=== PATIENT | male | born 1965 | race Caucasian/White ===

== ENCOUNTER 2016-05-31 10:08 | Emergency (ER) | payer OTHER ==
[2016-05-31 10:18] VITALS: BP 136/75
--- NOTE | 2016-05-31 10:42 | ER Document Report ---
ED Wound - General Chief Complaint: Wound Recheck Stated Complaint: WOUND RECHECK Time seen by provider: 10:42 Mode of Arrival: Ambulatory Information source: Patient TRAVEL OUTSIDE OF THE [place] IN LAST 30 DAYS: No - HPI Patient complains to provider of: Other - wound recheck Occurred: Other - 05/29 Onset/Duration: Better Quality of pain: Stabbing Severity: Mild Pain Level: 1 Capillary refill: > 3 seconds Sensations intact: Yes Distal pulses present: Yes Associated Symptoms: Other - Related Data Allergies/Adverse Reactions: No Known Allergies Allergy (Verified 05/31/16 10:21) Past Medical History - General Information source: Patient - Social History Smoking Status: Current Every Day Smoker Cigarette use (# per day): Yes - ppd Chew tobacco use (# tins/day): No Smoking Education Provided: Yes - less 2min Frequency of alcohol use: None Drug Abuse: None Lives with: Family Family History: Arthritis, CAD, CVA, DM, Hyperlipidemia, Hypertension, Malignancy, Thyroid Disfunction - Past Medical History Cardiac Medical History: Reports: Hx Atrial Fibrillation, Hx Coronary Artery Disease, Hx Heart Attack, Hx Hypertension Pulmonary Medical History: Reports: Hx COPD EENT Medical History: Reports: None Neurological Medical History: Reports: Hx Migraine Endocrine Medical History: Reports: Hx Hypothyroidism Renal/ Medical History: Reports: Hx Benign Prostatic Hyperplasia Malignancy Medical History: Reports Hx Colorectal Cancer GI Medical History: Reports: Hx Diverticulitis, Hx Gastroesophageal Reflux Disease Musculoskeltal Medical History: Reports Hx Arthritis Skin Medical History: Reports Hx Cellulitis Psychiatric Medical History: Reports: Hx Anxiety Traumatic Medical History: Reports: Hx Fractures Infectious Medical History: Reports: None Past Surgical History: Reports: Hx Bowel Surgery, Hx Cardiac Catheterization, Hx Coronary Stent - 7. Denies: Hx Colostomy - Immunizations Hx Diphtheria, Pertussis, Tetanus Vaccination: Yes Review of Systems - Review of Systems Constitutional: No symptoms reported EENT: No symptoms reported Cardiovascular: No symptoms reported Respiratory: No symptoms reported Gastrointestinal: No symptoms reported Genitourinary: No symptoms reported Male Genitourinary: No symptoms reported Musculoskeletal: No symptoms reported Skin: Other - open draining wound to left thigh I&D on 05/29/16 Hematologic/Lymphatic: No symptoms reported Neurological/Psychological: No symptoms reported -: Yes All other systems reviewed and negative Physical Exam - Vital signs Vitals: Temp Pulse Resp BP Pulse Ox 98.5 F 61 18 136/75 H 98 05/31/16 10:17 05/31/16 10:17 05/31/16 10:17 05/31/16 10:17 05/31/16 10:17 Interpretation: Normal - General General appearance: Appears well, Alert - HEENT Head: Normocephalic, Atraumatic Eyes: Normal Pupils: PERRL - Respiratory Respiratory status: No respiratory distress Chest status: Nontender Breath sounds: Normal Chest palpation: Normal - Cardiovascular Rhythm: Regular Heart sounds: Normal auscultation Murmur: No - Abdominal Inspection: Normal Distension: No distension Bowel sounds: Normal Tenderness: Nontender Organomegaly: No organomegaly - Back Back: Normal, Nontender - Extremities General upper extremity: Normal inspection, Nontender, Normal color, Normal ROM , Normal temperature General lower extremity: Normal inspection, Nontender, Normal color, Normal ROM , Normal temperature, Normal weight bearing. No: Ankit's sign - Neurological Neuro grossly intact: Yes Cognition: Normal Orientation: AAOx4 Dariusz Coma Scale Eye Opening: Spontaneous [place] Coma Scale Verbal: Oriented Dariusz Coma Scale Motor: Obeys Commands [place] Coma Scale Total: 15 Speech: Normal Motor strength normal: LUE, RUE, LLE, RLE Sensory: Normal - Psychological Associated symptoms: Normal affect, Normal mood - Skin Skin Temperature: Warm Skin Moisture: Dry Skin Color: Normal Location of irregularity: Extremities - left leg open area due to I&D if abscess Course - Vital Signs Vital signs: Temp Pulse Resp BP Pulse Ox 98.5 F 61 18 136/75 H 98 05/31/16 10:17 05/31/16 10:17 05/31/16 10:17 05/31/16 10:17 05/31/16 10:17 Discharge - Discharge Clinical Impression: Abscess re-check Condition: Stable Disposition: HOME, SELF-CARE Additional Instructions: ABSCESS: You have an abscess (boil). This a pus-forming infection, usually due to staph. Some boils may be left to drain on their own, but most require lancing. From the time the tender lump first appears, it may be three or four days before the abscess is ready to amina. Local heat and rest help at this stage of treatment. An antibiotic may prevent spread of the infection. Once the abscess is opened, packing may be placed into it. This is done so pus is not sealed inside by premature closure of the cavity. The packing will be removed at your follow-up visit or you may be advised to remove it yourself at home. Sometimes this packing must be replaced a few times during healing. The wound will heal with surprisingly little scar. Depending on the size and location of an abscess, healing can take one to four weeks. You may shower and wash the area around the incision site two or three times a day. Antibiotics may be prescribed, but are usually not necessary after an abscess has been drained. If you develop fever, chills, worsening pain, or increasing swelling in the area, call the doctor or return immediately. Soap Cleansing Gently wash the wound daily using a mild soap (like Ivory, Phisoderm, Neutrogena). Use warm water, rubbing gently until all debris, ooze, and crusting have been washed from the wound. Allow to dry briefly (about 10 minutes) after cleaning. Repeat this cleansing at least three times a day for the first two days and then once or twice a day. CEPHALEXIN: The antibiotic you've been prescribed is a member of the cephalosporin class. This type of antibiotic covers a wide variety of infections, including those of the skin, lungs, and urinary tract. It's useful for staph infections. This antibiotic is slightly similar to the penicillin family. In rare cases , a person who is allergic to penicillin will also be allergic to this medication. If you have had a severe allergic reaction to penicillin, and have not taken this antibiotic since that time, notify your doctor. Antibiotics which cover many germs ("broad spectrum" antibiotics) are more likely to cause diarrhea or "yeast" infections. Women prone to vaginal yeast problems may suffer an attack after taking this antibiotic. In infants, oral thrush (white spots "stuck" on the cheek) or yeast diaper rash may result. See your doctor if these problems occur. Call at once if you develop itching, hives , shortness of breath, or lightheadedness. TRIMETHOPRIM-SULFA: You have been given a prescription for trimethoprim-sulfa (TMS, Septra, Bactrim). This is a combination antibiotic of the sulfa class, often used for urinary tract infections, middle ear infections, bronchitis, shigella intestinal infection, and Pneumocystis pneumonia. TMS is usually well-tolerated. Occasional side effects include nausea and decreased appetite. Septra is not recommended for infants less than two months of age. Do not take this medication if you have experienced severe side effects or allergy to sulfa medicine. You should stop this medicine at once and contact your physician if you develop any rash, joint pain, shortness of breath, bruising, or jaundice ( yellow color in the skin), or if you develop any other new or unusual symptoms. FOLLOW-UP CARE: Most simple abscesses will not require a follow up visit. If you had packing placed in the abscess, remove it as instructed by the physician. If you have been referred to a physician for follow-up care, call the physicians office for an appointment as you were instructed or within the next two days. If you experience worsening or a significant change in your symptoms, return to the Emergency Department at any time for re-evaluation. Prescriptions: Oxycodone HCl/Acetaminophen [Percocet 5-325 mg Tablet] 1 tab PO Q6HP PRN #7 tablet PRN Reason: Cephalexin Monohydrate [Keflex 500 mg Capsule] 500 mg PO QID #28 capsule Forms: Elevated Blood Pressure, Smoking Cessation Education [facility] - Follow up as needed
[2016-05-31] MEDS ORDERED: CEPHALEXIN 500 MG CAPSULE PO ONE (10:43)
[2016-05-31] MEDS ORDERED: MUPIROCIN 2% OINTMENT 22 GM TP ONE (10:44)
== END 2016-05-31 10:58 | disposition home or self-care (01) ==
LOC: ER 10:08
DX: L02.416 Cutaneous abscess of left lower limb (principal); F17.210 Nicotine dependence, cigarettes, uncomplicated; I48.91 Unspecified atrial fibrillation; I25.10 Atherosclerotic heart disease of native coronary artery without angina pectoris; I25.2 Old myocardial infarction; I10 Essential (primary) hypertension; J44.9 Chronic obstructive pulmonary disease, unspecified; E03.9 Hypothyroidism, unspecified; Z85.038 Personal history of other malignant neoplasm of large intestine
CPT/HCPCS: 99282; J3490

== ENCOUNTER 2016-06-08 08:34 | Emergency (ER) | payer OTHER ==
[2016-06-08 09:21] VITALS: BP 126/78
--- NOTE | 2016-06-08 09:55 | ER Document Report ---
ED Wound - General Chief Complaint: Wound Recheck Stated Complaint: LEG PAIN Mode of Arrival: Ambulatory Information source: Patient Notes: 51-year-old male presents to the emergency department for recheck of wound to left medial thigh after having an I&D done approximately 10 days ago. Patient reports had I&D done to abscess on left medial thigh 10 days ago and is ED, states initially was prescribed Bactrim and subsequently changed to cephalexin 2 days later after culture results came back positive for MRSA. Patient reports has a history of delayed wound healing and wanted to have wound recheck to make sure it was healing appropriately. Denies fever, increased pain, redness, swelling, drainage, or warmth. TRAVEL OUTSIDE OF THE [place] IN LAST 30 DAYS: No - HPI Quality of pain: No pain Severity: Mild Skin Color: Normal, [place] Capillary refill: < 3 seconds Sensations intact: Yes Distal pulses present: Yes - Related Data Allergies/Adverse Reactions: No Known Allergies Allergy (Verified 06/08/16 08:35) Past Medical History - General Information source: Patient - Social History Smoking Status: Current Every Day Smoker Chew tobacco use (# tins/day): Yes Frequency of alcohol use: None Drug Abuse: None Lives with: Family Family History: Arthritis, CAD, CVA, DM, Hyperlipidemia, Hypertension, Malignancy, Thyroid Disfunction Patient has suicidal ideation: No Patient has homicidal ideation: No - Past Medical History Cardiac Medical History: Reports: Hx Atrial Fibrillation, Hx Coronary Artery Disease, Hx Heart Attack, Hx Hypertension Pulmonary Medical History: Reports: Hx COPD Denies: Hx Asthma, Hx Bronchitis, Hx Pneumonia Neurological Medical History: Reports: Hx Migraine. Denies: Hx Cerebrovascular Accident, Hx Seizures Endocrine Medical History: Reports: Hx Hypothyroidism Renal/ Medical History: Reports: Hx Benign Prostatic Hyperplasia Malignancy Medical History: Reports Hx Colorectal Cancer GI Medical History: Reports: Hx Diverticulitis, Hx Gastroesophageal Reflux Disease Musculoskeltal Medical History: Reports Hx Arthritis Skin Medical History: Reports Hx Cellulitis Psychiatric Medical History: Reports: Hx Anxiety Traumatic Medical History: Reports: Hx Fractures Past Surgical History: Reports: Hx Bowel Surgery, Hx Cardiac Catheterization, Hx Coronary Stent - 7. Denies: Hx Colostomy - Immunizations Hx Diphtheria, Pertussis, Tetanus Vaccination: Yes Review of Systems - Review of Systems Constitutional: No symptoms reported EENT: No symptoms reported Cardiovascular: No symptoms reported Respiratory: No symptoms reported Gastrointestinal: No symptoms reported Genitourinary: No symptoms reported Male Genitourinary: No symptoms reported Musculoskeletal: No symptoms reported Skin: See HPI Hematologic/Lymphatic: No symptoms reported Neurological/Psychological: No symptoms reported -: Yes All other systems reviewed and negative Physical Exam - Vital signs Vitals: Temp Pulse Resp BP Pulse Ox 98 F 58 L 16 136/84 H 98 06/08/16 08:38 06/08/16 08:38 06/08/16 08:38 06/08/16 08:38 06/08/16 08:38 Interpretation: Normal - General General appearance: Appears well, Alert In distress: None - HEENT Head: Normocephalic, Atraumatic Eyes: Normal Pupils: PERRL - Respiratory Respiratory status: No respiratory distress Chest status: Nontender Breath sounds: Normal Chest palpation: Normal - Cardiovascular Rhythm: Regular Heart sounds: Normal auscultation Murmur: No Pulses: Normal: Radial, Posterior tibial, Dorsalis pedis Normal capillary refill: Yes - Abdominal Inspection: Normal Distension: No distension Bowel sounds: Normal Tenderness: Nontender Organomegaly: No organomegaly - Back Back: Normal, Nontender - Extremities General upper extremity: Normal inspection, Nontender, Normal color, Normal ROM , Normal strength, Normal temperature. No: Tender, Edema General lower extremity: Normal inspection, Nontender, Normal color, Normal ROM , Normal strength, Normal temperature, Normal weight bearing. No: Tender, Edema , Ankit's sign Thigh: Other - Patient has approximately 2 cm diameter circular open wound post I&D to the left medial lower thigh which appears to be healing well with no surrounding cellulitis or purulent drainage. Motor and neurovascular function intact. - Neurological Neuro grossly intact: Yes Cognition: Normal Orientation: AAOx4 Tad Coma Scale Eye Opening: Spontaneous Tad Coma Scale Verbal: Oriented Dariusz Coma Scale Motor: Obeys Commands Tad Coma Scale Total: 15 Speech: Normal Motor strength normal: LUE, RUE, LLE, RLE Sensory: Normal - Psychological Associated symptoms: Normal affect, Normal mood - Skin Skin Temperature: Warm Skin Moisture: Dry Skin Color: Normal Course - Re-evaluation Re-evalutation: 06/08/16 10:10 Patient hemodynamically stable, in no distress, afebrile. Patient has documented progression of wound with pictures on his phone and wound appears to be healing well although slowly. Reviewed patient's visit records and microbiology/culture results which shows MRSA growth resistant to cephalosporins. Will prescribe course of clindamycin which was susceptible on culture. Patient appears stable for discharge at this time with no complications of wound and agrees with home care, follow-up with PCP, and ED return precautions. - Vital Signs Vital signs: Temp Pulse Resp BP Pulse Ox 97.9 F 59 L 20 126/78 H 96 06/08/16 09:21 06/08/16 09:21 06/08/16 09:21 06/08/16 09:21 06/08/16 09:21 Discharge - Discharge Clinical Impression: Encounter for wound re-check Condition: Stable Disposition: HOME, SELF-CARE Instructions: Abscess ([facility]), Dressing Instructions for Open Wounds ([facility]), MRSA Cellulitis ([facility]), Clindamycin ([facility]) Additional Instructions: Follow-up with your primary care provider this week for reevaluation to make sure the wound is continuing to heal without complications. Return to the emergency department for any worsening symptoms or concerns. Prescriptions: Clindamycin HCl 300 mg PO Q6H #20 capsule Referrals: IRAIDA OTTO MD [ACTIVE STAFF] - Follow up in 3-5 days
== END 2016-06-08 10:10 | disposition home or self-care (01) ==
LOC: ER 08:34
DX: Z48.817 Encounter for surgical aftercare following surgery on the skin and subcutaneous tissue (principal); L02.416 Cutaneous abscess of left lower limb; B95.62 Methicillin resistant Staphylococcus aureus infection as the cause of diseases classified elsewhere; F17.210 Nicotine dependence, cigarettes, uncomplicated; I25.10 Atherosclerotic heart disease of native coronary artery without angina pectoris; I25.2 Old myocardial infarction; I10 Essential (primary) hypertension; J44.9 Chronic obstructive pulmonary disease, unspecified; Z85.048 Personal history of other malignant neoplasm of rectum, rectosigmoid junction, and anus; Z98.61 Coronary angioplasty status
CPT/HCPCS: 99282

== ENCOUNTER → 2016-06-16 | Outpatient (CLI) | payer OTHER ==
[~2016-06-16] MED LIST: ALBUTEROL SULFATE 0.083% NEB 2.5 MG/3 ML AMPUL NEB ONE
== END ==
LOC: RT 12:09
PROVIDERS: ATTEND Nurse Practitioner Adult Health
DX: R06.00 Dyspnea, unspecified (principal); J44.9 Chronic obstructive pulmonary disease, unspecified; K21.9 Gastro-esophageal reflux disease without esophagitis
CPT/HCPCS: 94060; 94640; 94727; 94729; 94760

== ENCOUNTER → 2016-07-02 | Outpatient (CLI) | payer OTHER ==
[2016-07-02 10:31] LABS: ALANINE AMINOTRANSFERASE 14 U/L (21-72); ALBUMIN 4.3 g/dL (3.5-5.0); ALKALINE PHOSPHATASE 96 U/L (38-126); ANION GAP 13 (5-19); ASPARTATE AMINO TRANSFERASE 18 U/L (17-59); BILIRUBIN,TOTAL 0.5 mg/dL (0.2-1.3); BLOOD UREA NITROGEN 10 mg/dL (7-20); CALCIUM 8.7 mg/dL (8.4-10.2); CARBON DIOXIDE 27 mmol/L (22-30); CHLORIDE 102 mmol/L (98-107); CREATININE RESULT 1.31 mg/dL (0.52-1.25); GLUCOSE 85 mg/dL (75-110); MAGNESIUM 2.2 mg/dL (1.6-2.3); POTASSIUM 3.7 mmol/L (3.6-5.0); SODIUM 141.8 mmol/L (137-145); TOTAL PROTEIN 7.1 g/dL (6.3-8.2)
--- NOTE | 2016-07-02 11:07 | EKG REPORT ---
SEVERITY:- ABNORMAL ECG - SINUS RHYTHM LEFT VENTRICULAR HYPERTROPHY LATERAL Q WAVES, PROBABLY DUE TO LVH BORDERLINE T ABNORMALITIES, INFERIOR LEADS : Confirmed by: Mikayla Culver 02-Jul-2016 11:06:44
== END ==
LOC: CCC 09:13
PROVIDERS: ATTEND Internal Medicine Cardiovascular Disease
DX: R07.9 Chest pain, unspecified (principal); I10 Essential (primary) hypertension; I48.91 Unspecified atrial fibrillation; Z79.899 Other long term (current) drug therapy
CPT/HCPCS: 36415; 80048; 80076; 83735; 93005; 93010

== ENCOUNTER → 2016-07-08 | Outpatient (CLI) | payer OTHER | LOC: RAD 07:06 | PROVIDERS: ATTEND Nurse Practitioner Adult Health | DX: R06.00 Dyspnea, unspecified (principal); R91.1 Solitary pulmonary nodule | CPT/HCPCS: 71250 ==

== ENCOUNTER 2016-07-22 12:40 | Emergency (ER) | payer OTHER ==
--- NOTE | 2016-07-22 12:55 | ER Document Report ---
ED Medical Screen (RME) - General Chief Complaint: Breathing Difficulty Stated Complaint: DIFFICULTY BREATHING Mode of Arrival: Ambulatory Information source: Patient Notes: 51 y/o M presents to ED c/o sob with exertion. Reports symptoms worsening over the last 2 months. States has been diagnosed with mass to lung but symptoms are worsening. Reports at times has associated chest pain but denies at this time. I have greeted and performed a rapid initial assessment of this patient. A comprehensive ED assessment and evaluation of the patient, analysis of test results and completion of the medical decision making process will be conducted by additional ED providers. TRAVEL OUTSIDE OF THE [place] IN LAST 30 DAYS: No - Related Data Allergies/Adverse Reactions: No Known Allergies Allergy (Verified 07/22/16 12:48) Past Medical History - Social History Chew tobacco use (# tins/day): No Frequency of alcohol use: None Drug Abuse: None - Past Medical History Cardiac Medical History: Reports: Hx Atrial Fibrillation, Hx Coronary Artery Disease, Hx Heart Attack, Hx Hypertension Pulmonary Medical History: Reports: Hx COPD Denies: Hx Asthma, Hx Bronchitis, Hx Pneumonia Neurological Medical History: Reports: Hx Migraine. Denies: Hx Cerebrovascular Accident, Hx Seizures Endocrine Medical History: Reports: Hx Hypothyroidism Renal/ Medical History: Reports: Hx Benign Prostatic Hyperplasia. Denies: Hx Peritoneal Dialysis Malignancy Medical History: Reports Hx Colorectal Cancer GI Medical History: Reports: Hx Diverticulitis, Hx Gastroesophageal Reflux Disease Musculoskeltal Medical History: Reports Hx Arthritis Skin Medical History: Reports Hx Cellulitis Psychiatric Medical History: Reports: Hx Anxiety Traumatic Medical History: Reports: Hx Fractures Past Surgical History: Reports: Hx Bowel Surgery, Hx Cardiac Catheterization, Hx Coronary Stent - 7. Denies: Hx Colostomy - Immunizations Hx Diphtheria, Pertussis, Tetanus Vaccination: Yes Physical Exam - Vital signs Vitals: Temp Pulse Resp BP Pulse Ox 98.1 F 62 20 127/75 H 98 07/22/16 12:47 07/22/16 12:47 07/22/16 12:47 07/22/16 12:47 07/22/16 12:47 - General General appearance: Appears well, Alert In distress: None - Respiratory Respiratory status: No respiratory distress Breath sounds: Normal Course - Vital Signs Vital signs: Temp Pulse Resp BP Pulse Ox 98.1 F 62 20 127/75 H 98 07/22/16 12:47 07/22/16 12:47 07/22/16 12:47 07/22/16 12:47 07/22/16 12:47
[2016-07-22 13:33] LABS: ABSOLUTE BASOPHILS # (AUTO) 0.1 10^3/uL (0.0-0.2); ABSOLUTE EOSINOPHILS # (AUTO) 0.1 10^3/uL (0.0-0.6); ABSOLUTE MONOCYTES (AUTO) 0.9 10^3/uL (0.1-1.4); ABSOLUTE NEUT (AUTO) 6.3 10^3/uL (1.7-8.2); BASOPHILS % (AUTO) 1.1 % (0-2); EOSINOPHILS % (AUTO) 1.1 % (0-6); HEMATOCRIT 44.4 % (37.9-51.0); HEMOGLOBIN 15.3 g/dL (13.5-17.0); HGB HCT DIFFERENCE 1.5; LYMPHOCYTES % (AUTO) 21.2 % (13-45); MEAN CORPUSCULAR HEMOGLOBIN 32.3 pg (27.0-33.4); MEAN CORPUSCULAR HGB CONC 34.5 g/dL (32.0-36.0); MEAN CORPUSCULAR VOLUME 94 fl (80-97); MONOCYTES % (AUTO) 9.7 % (3-13); RED BLOOD COUNT 4.73 10^6/uL (4.35-5.55); RED CELL DISTRIBUTION WIDTH 13.4 % (11.5-14.0); SEGMENTED NEUTROPHILS % (AUTO) 66.9 % (42-78); WHITE BLOOD COUNT 9.4 10^3/uL (4.0-10.5)
[2016-07-22 13:42] LABS: APPEARANCE,URINE CLEAR; BILIRUBIN,URINE NEGATIVE (NEGATIVE); GLUCOSE, URINE NEGATIVE (NEGATIVE); KETONES,URINE NEGATIVE (NEGATIVE); LEUKOCYTE ESTERASE,URINE LARGE (NEGATIVE); NITRITE,URINE NEGATIVE (NEGATIVE); PROTEIN,URINE NEGATIVE (NEGATIVE); URINE SPECIFIC GRAVITY 1.003; UROBILINOGEN,URINE NEGATIVE mg/dL (<2.0)
[2016-07-22 13:50] LABS: ALANINE AMINOTRANSFERASE 23 U/L (21-72); ALBUMIN 4.6 g/dL (3.5-5.0); ALKALINE PHOSPHATASE 108 U/L (38-126); ANION GAP 12 (5-19); ASPARTATE AMINO TRANSFERASE 26 U/L (17-59); BILIRUBIN,TOTAL 0.5 mg/dL (0.2-1.3); BLOOD UREA NITROGEN 9 mg/dL (7-20); CALCIUM 9.8 mg/dL (8.4-10.2); CARBON DIOXIDE 28 mmol/L (22-30); CHLORIDE 99 mmol/L (98-107); CREATINE KINASE 290 U/L (55-170); CREATININE RESULT 1.34 mg/dL (0.52-1.25); GLUCOSE 85 mg/dL (75-110); POTASSIUM 3.4 mmol/L (3.6-5.0); SODIUM 138.9 mmol/L (137-145); TOTAL PROTEIN 8.1 g/dL (6.3-8.2)
--- NOTE | 2016-07-22 13:56 | ER Document Report ---
ED Respiratory Problem - General Chief Complaint: Breathing Difficulty Stated Complaint: DIFFICULTY BREATHING Mode of Arrival: Ambulatory Information source: Patient Notes: Patient reports that he has had difficulty breathing for several months that has gotten worse over the past month. Patient states that he was recently diagnosed with a lung mass and is waiting for an outpatient PET scan to be scheduled. Patient states that he has been having chest pain off and on for several months but last had chest pain 4 days ago. Patient reports exertional shortness of breath. Patient denies any fever, nausea, or vomiting. Patient does report mild cough. TRAVEL OUTSIDE OF THE [place] IN LAST 30 DAYS: No - HPI Patient complains to provider of: Cough, Short of breath Onset: Other - Several months, worse over the past month Initiating Event: Other - History of lung mass Quality of pain: No pain Pain Level: Denies Context: Hx COPD, Smoker. denies: Recent surgery Cough: Nonproductive Associated symptoms: Chest pain/discomfort - 4 days ago, none since then, Cough. denies: Anxiety, Bloody cough, Fever, Wheezing Similar symptoms previously: Yes Recently seen / treated by doctor: No - Related Data Allergies/Adverse Reactions: No Known Allergies Allergy (Verified 07/22/16 12:48) Past Medical History - General Information source: Patient - Social History Smoking Status: Current Every Day Smoker Chew tobacco use (# tins/day): No Frequency of alcohol use: None Drug Abuse: None Occupation: maintenance work Lives with: Spouse/Significant other Family History: Arthritis, CAD, CVA, DM, Hyperlipidemia, Hypertension, Malignancy, Thyroid Disfunction Patient has suicidal ideation: No Patient has homicidal ideation: No - Past Medical History Cardiac Medical History: Reports: Hx Atrial Fibrillation, Hx Coronary Artery Disease, Hx Heart Attack, Hx Hypertension Pulmonary Medical History: Reports: Hx COPD Denies: Hx Asthma, Hx Bronchitis, Hx Pneumonia Neurological Medical History: Reports: Hx Migraine. Denies: Hx Cerebrovascular Accident, Hx Seizures Endocrine Medical History: Reports: Hx Hypothyroidism Renal/ Medical History: Reports: Hx Benign Prostatic Hyperplasia. Denies: Hx Peritoneal Dialysis Malignancy Medical History: Reports Hx Colorectal Cancer - Patient reports a lot of scar tissue perirectally GI Medical History: Reports: Hx Diverticulitis, Hx Gastroesophageal Reflux Disease Musculoskeltal Medical History: Reports Hx Arthritis Skin Medical History: Reports Hx Cellulitis Psychiatric Medical History: Reports: Hx Anxiety Traumatic Medical History: Reports: Hx Fractures Past Surgical History: Reports: Hx Bowel Surgery, Hx Cardiac Catheterization, Hx Coronary Stent - 7. Denies: Hx Colostomy - Immunizations Hx Diphtheria, Pertussis, Tetanus Vaccination: Yes Review of Systems - Review of Systems Constitutional: No symptoms reported. denies: Fever, Recent illness EENT: No symptoms reported Cardiovascular: Dyspnea. denies: Chest pain Respiratory: Cough, Short of breath - With exertion Gastrointestinal: No symptoms reported. denies: Abdominal pain, Nausea, Vomiting Genitourinary: Dysuria, Frequency. denies: Flank pain Male Genitourinary: No symptoms reported Musculoskeletal: No symptoms reported. denies: Back pain Skin: No symptoms reported Hematologic/Lymphatic: No symptoms reported Neurological/Psychological: No symptoms reported Physical Exam - Vital signs Vitals: Temp Pulse Resp BP Pulse Ox 98.1 F 62 20 127/75 H 98 07/22/16 12:47 07/22/16 12:47 07/22/16 12:47 07/22/16 12:47 07/22/16 12:47 - General General appearance: Appears well, Alert In distress: None - HEENT Head: Normocephalic, Atraumatic Eyes: Normal Conjunctiva: Normal Nasal: Normal Mouth/Lips: Normal Mucous membranes: Normal Neck: Normal, Supple. No: Lymphadenopathy - Respiratory Respiratory status: No respiratory distress Chest status: Nontender Breath sounds: Normal Chest palpation: Normal - Cardiovascular Rhythm: Regular Heart sounds: S1 appreciated, S2 appreciated Murmur: No - Abdominal Inspection: Normal Distension: No distension Bowel sounds: Normal Tenderness: Nontender Organomegaly: No organomegaly - Back Back: Tender - Lower lumbar paraspinal tenderness. No: CVA tenderness - Extremities General upper extremity: Normal inspection, Normal strength General lower extremity: Normal inspection, Normal strength - Neurological Neuro grossly intact: Yes Cognition: Normal Dariusz Coma Scale Eye Opening: Spontaneous [place] Coma Scale Verbal: Oriented Dariusz Coma Scale Motor: Obeys Commands [place] Coma Scale Total: 15 - Psychological Associated symptoms: Normal affect, Normal mood - Skin Skin Temperature: Warm Skin Moisture: Dry Skin Color: Normal Course - Re-evaluation Re-evalutation: 07/22/16 15:[address] Leal regarding patient presentation, exam findings as well as history. Recommends repeat troponin testing 3 hours after initial lab work drawn. Patient resting comfortably, denies any chest pain. Patient reports only exertional shortness of breath and denies shortness of breath at rest. Patient advised of plan of care and intention to repeat his laboratory study test. 07/22/16 17:[address] Leal regarding patient's repeat cardiac enzyme testing. Patient denies dyspnea or chest pain at this time. Vital signs continue stable. Agrees with discharge plan of care 07/22/16 Late entry. No rectal examination performed. Patient reports that he has a history of colorectal cancer and has a lot of scar tissue in the rectal area. Patient was advised that he needs referral to surgery to have some of the scar tissue removed. Patient states his primary doctor was unable to perform a prostate examination due to his scar tissue - Vital Signs Vital signs: Temp Pulse Resp BP Pulse Ox 97.9 F 62 16 138/81 H 98 07/22/16 18:19 07/22/16 12:47 07/22/16 18:19 07/22/16 18:19 07/22/16 18:19 - Laboratory Result Diagrams: 07/22/16 13:11 07/22/16 13:11 Laboratory results interpreted by me: 07/22/16 07/22/16 07/22/16 13:11 13:11 13:11 Potassium 3.4 L Creatinine 1.34 H Est GFR (Non-Af Amer) 56 L Creatine Kinase 290 H CK-MB (CK-2) 5.28 H Urine Blood SMALL H Ur Leukocyte Esterase LARGE H 07/22/16 16:28 Potassium Creatinine Est GFR (Non-Af Amer) Creatine Kinase CK-MB (CK-2) 4.69 H Urine Blood Ur Leukocyte Esterase 07/22/16 17:35 Labs- Entire Visit 07/22/16 07/22/16 07/22/16 13:11 13:11 13:11 WBC 9.4 RBC 4.73 Hgb 15.3 Hct 44.4 MCV 94 MCH 32.3 MCHC 34.5 RDW 13.4 Plt Count 241 Seg Neutrophils % 66.9 Lymphocytes % 21.2 Monocytes % 9.7 Eosinophils % 1.1 Basophils % 1.1 Absolute Neutrophils 6.3 Absolute Lymphocytes 2.0 Absolute Monocytes 0.9 Absolute Eosinophils 0.1 Absolute Basophils 0.1 PT INR APTT Sodium 138.9 Potassium 3.4 L Chloride 99 Carbon Dioxide 28 Anion Gap 12 BUN 9 Creatinine 1.34 H Est GFR ( Amer) > 60 Est GFR (Non-Af Amer) 56 L Glucose 85 Calcium 9.8 Total Bilirubin 0.5 Direct Bilirubin 0.0 AST 26 ALT 23 Alkaline Phosphatase 108 Creatine Kinase 290 H CK-MB (CK-2) 5.28 H Troponin I < 0.012 Total Protein 8.1 Albumin 4.6 Urine Color Urine Appearance Urine pH Ur Specific [place] Urine Protein Urine Glucose (UA) Urine Ketones Urine Blood Urine Nitrite Urine Bilirubin Urine Urobilinogen Ur Leukocyte Esterase Urine WBC (Auto) Urine RBC (Auto) Urine Mucus (Auto) Urine Ascorbic Acid 07/22/16 07/22/16 07/22/16 13:11 13:11 16:28 WBC RBC Hgb Hct MCV MCH MCHC RDW Plt Count Seg Neutrophils % Lymphocytes % Monocytes % Eosinophils % Basophils % Absolute Neutrophils Absolute Lymphocytes Absolute Monocytes Absolute Eosinophils Absolute Basophils PT 12.2 INR 0.88 APTT 28.6 Sodium Potassium Chloride Carbon Dioxide Anion Gap BUN Creatinine Est GFR ( Amer) Est GFR (Non-Af Amer) Glucose Calcium Total Bilirubin Direct Bilirubin AST ALT Alkaline Phosphatase Creatine Kinase CK-MB (CK-2) 4.69 H Troponin I < 0.012 Total Protein Albumin Urine Color STRAW Urine Appearance CLEAR Urine pH 6.0 Ur Specific [place] 1.003 Urine Protein NEGATIVE Urine Glucose (UA) NEGATIVE Urine Ketones NEGATIVE Urine Blood SMALL H Urine Nitrite NEGATIVE Urine Bilirubin NEGATIVE Urine Urobilinogen NEGATIVE Ur Leukocyte Esterase LARGE H Urine WBC (Auto) 46 Urine RBC (Auto) 1 Urine Mucus (Auto) RARE Urine Ascorbic Acid NEGATIVE - Diagnostic Test Radiology reviewed: Reports reviewed Discharge - Discharge Clinical Impression: Hypokalemia, hx lung mass, Abnormal renal function test Dyspnea Qualifiers: Dyspnea type: dyspnea on exertion Qualified Code(s): R06.09 - Other forms of dyspnea UTI (urinary tract infection) Qualifiers: Urinary tract infection type: site unspecified Hematuria presence: with hematuria Qualified Code(s): N39.0 - Urinary tract infection, site not specified Condition: Stable Disposition: HOME, SELF-CARE Instructions: Urinary Tract Infection ([facility]), Hypokalemia ([facility]), Kidney Function Abnormality ([facility]), Doxycycline ([facility]), Dyspnea, Nonspecific ([facility]) Additional Instructions: Return immediately for any new or worsening symptoms Followup with your primary care provider, call tomorrow to make a followup appointment Follow-up with your graphic technician for further evaluation of your lung mass Follow-up with your charge coordinator for recheck Your renal function test and potassium level was slightly abnormal, your primary doctor can order repeat test to further evaluate this. Increase foods rich in potassium in your diet. Prescriptions: Doxycycline Hyclate 100 mg PO BID #20 capsule Referrals: VERA LOWE MD [[facility]] - Follow up in 3-5 days [facility] [Primary Care Provider] - Follow up tomorrow
[2016-07-22 14:01] LABS: CREATINE KINASE MB 5.28 ng/mL (<4.55)
[2016-07-22 14:02] LABS: TROPONIN I < 0.012 ng/mL
[2016-07-22 14:08] LABS: PROTHROMBIN TIME 12.2 SEC (11.4-15.4)
[2016-07-22 14:09] LABS: PARTIAL THROMBOPLASTIN TIME 28.6 SEC (23.5-35.8)
[2016-07-22] MEDS ORDERED: CEFTRIAXONE RTU 1 GM/D5W 50 ML IV ONE (14:20)
[2016-07-22] MEDS ORDERED: POTASSIUM CHLORIDE 10 MEQ TABLET.SA PO ONE (14:20)
--- NOTE | 2016-07-22 16:37 | EKG REPORT ---
SEVERITY:- ABNORMAL ECG - SINUS RHYTHM PROBABLE LEFT VENTRICULAR HYPERTROPHY LATERAL Q WAVES, PROBABLY DUE TO LVH : Confirmed by: Cami Castellanos MD 22-Jul-2016 16:35:34
[2016-07-22 17:00] LABS: CREATINE KINASE MB 4.69 ng/mL (<4.55); TROPONIN I < 0.012 ng/mL
[2016-07-22 18:26] VITALS: BP 138/81
== END 2016-07-22 18:26 | disposition home or self-care (01) ==
LOC: ER 12:40
DX: E87.6 Hypokalemia (principal); R94.4 Abnormal results of kidney function studies; R91.8 Other nonspecific abnormal finding of lung field; N39.0 Urinary tract infection, site not specified; R06.09 Other forms of dyspnea; R05 Cough; R06.02 Shortness of breath; R07.9 Chest pain, unspecified; F17.200 Nicotine dependence, unspecified, uncomplicated; J44.9 Chronic obstructive pulmonary disease, unspecified; I48.91 Unspecified atrial fibrillation; I25.10 Atherosclerotic heart disease of native coronary artery without angina pectoris; I10 Essential (primary) hypertension; E03.9 Hypothyroidism, unspecified; I25.2 Old myocardial infarction; Z85.038 Personal history of other malignant neoplasm of large intestine
CPT/HCPCS: 93005; 99285; 96365; 36415; 87086; 82553; 82550; 85025; 85610; 85730; 87088; 80053; 81001; 84484; 87186; 71020; 93010; J0696

== ENCOUNTER → 2016-08-01 | Outpatient (CLI) | payer OTHER | LOC: RAD 18:31 | PROVIDERS: ATTEND Nurse Practitioner Adult Health | DX: J98.4 Other disorders of lung (principal) | CPT/HCPCS: 78815; A9552 ==

== ENCOUNTER 2016-08-03 11:20 | Emergency (ER) | payer OTHER ==
--- NOTE | 2016-08-03 11:46 | ER Document Report ---
ED Medical Screen (RME) - General Stated Complaint: LEG PAIN Time seen by provider: 11:40 Mode of Arrival: Ambulatory Information source: Patient Notes: 51-year-old male had sudden onset of medial posterior left calf pain while walking down the house getting his medical records at [facility] at 9:30 this morning. He does take a anticoagulant daily. no hx PE or DVT. Tender posterior mid left calf muscle. Consult Dr. Cunha who recommended getting the venous Doppler ultrasound at this time. I have greeted and performed a rapid initial assessment of this patient. A comprehensive ED assessment, evaluation of the patient, analysis of test results , and completion of the medical decision making process will be conducted by additional ED providers. TRAVEL OUTSIDE OF THE [place] IN LAST 30 DAYS: No - Related Data Allergies/Adverse Reactions: No Known Allergies Allergy (Verified 08/03/16 11:38) Past Medical History - Past Medical History Cardiac Medical History: Reports: Hx Atrial Fibrillation, Hx Coronary Artery Disease, Hx Heart Attack, Hx Hypertension Pulmonary Medical History: Reports: Hx COPD Denies: Hx Asthma, Hx Bronchitis, Hx Pneumonia Neurological Medical History: Reports: Hx Migraine. Denies: Hx Cerebrovascular Accident, Hx Seizures Endocrine Medical History: Reports: Hx Hypothyroidism Renal/ Medical History: Reports: Hx Benign Prostatic Hyperplasia. Denies: Hx Peritoneal Dialysis Malignancy Medical History: Reports Hx Colorectal Cancer - Patient reports a lot of scar tissue perirectally GI Medical History: Reports: Hx Diverticulitis, Hx Gastroesophageal Reflux Disease Musculoskeltal Medical History: Reports Hx Arthritis Skin Medical History: Reports Hx Cellulitis Psychiatric Medical History: Reports: Hx Anxiety Traumatic Medical History: Reports: Hx Fractures Past Surgical History: Reports: Hx Bowel Surgery, Hx Cardiac Catheterization, Hx Coronary Stent - 7. Denies: Hx Colostomy - Immunizations Hx Diphtheria, Pertussis, Tetanus Vaccination: Yes Physical Exam - Vital signs Vitals: Temp Pulse Resp BP Pulse Ox 98.2 F 65 16 132/78 H 97 08/03/16 11:24 08/03/16 11:24 08/03/16 11:24 08/03/16 11:24 08/03/16 11:24 Course - Vital Signs Vital signs: Temp Pulse Resp BP Pulse Ox 98.2 F 65 16 132/78 H 97 08/03/16 11:24 08/03/16 11:24 08/03/16 11:24 08/03/16 11:24 08/03/16 11:24
--- NOTE | 2016-08-03 14:17 | ER Document Report ---
HPI - HPI Patient complains to provider of: right lower extremity pain Onset: This morning Onset/Duration: Gradual Quality of pain: Achy Pain Level: 2 Context: Patient complains of right calf pain that started today. Patient denies any injury. Patient denies any fever, shortness of breath, or chest pain. Associated Symptoms: Other - Right calf pain Exacerbated by: Movement, Walking Relieved by: Denies Similar symptoms previously: No Recently seen / treated by doctor: No - ROS ROS below otherwise negative: Yes Systems Reviewed and Negative: Yes All other systems reviewed and negative - CONSTITUTIONAL Constitutional: DENIES: Fever, Chills - CARDIOVASCULAR Cardiovascular: DENIES: Chest pain - RESPIRATORY Respiratory: DENIES: Trouble Breathing, Coughing - GASTROINTESTINAL Gastrointestinal: DENIES: Nausea - REPRODUCTIVE Reproductive: DENIES: : - MUSCULOSKELETAL Musculoskeletal: REPORTS: Extremity pain - Right calf. DENIES: Swelling - DERM Skin Color: Normal Skin Problems: None Past Medical History - General Information source: Patient - Social History Smoking Status: Current Every Day Smoker Chew tobacco use (# tins/day): Yes Frequency of alcohol use: None Drug Abuse: None Lives with: Spouse/Significant other Family History: Arthritis, CAD, CVA, DM, Hyperlipidemia, Hypertension, Malignancy, Thyroid Disfunction Patient has suicidal ideation: No Patient has homicidal ideation: No - Past Medical History Cardiac Medical History: Reports: Hx Atrial Fibrillation, Hx Coronary Artery Disease, Hx Heart Attack, Hx Hypertension Pulmonary Medical History: Reports: Hx COPD Denies: Hx Asthma, Hx Bronchitis, Hx Pneumonia Neurological Medical History: Reports: Hx Migraine. Denies: Hx Cerebrovascular Accident, Hx Seizures Endocrine Medical History: Reports: Hx Hypothyroidism Renal/ Medical History: Reports: Hx Benign Prostatic Hyperplasia. Denies: Hx Peritoneal Dialysis Malignancy Medical History: Reports Hx Colorectal Cancer - Patient reports a lot of scar tissue perirectally GI Medical History: Reports: Hx Diverticulitis, Hx Gastroesophageal Reflux Disease Musculoskeltal Medical History: Reports Hx Arthritis Skin Medical History: Reports Hx Cellulitis Psychiatric Medical History: Reports: Hx Anxiety Traumatic Medical History: Reports: Hx Fractures Past Surgical History: Reports: Hx Bowel Surgery, Hx Cardiac Catheterization, Hx Coronary Stent - 7. Denies: Hx Colostomy - Immunizations Hx Diphtheria, Pertussis, Tetanus Vaccination: Yes Vertical Provider Document - CONSTITUTIONAL Agree With Documented VS: Yes General Appearance: WD/WN, No Apparent Distress - INFECTION CONTROL TRAVEL OUTSIDE OF THE [place] IN LAST 30 DAYS: No - HEENT HEENT: Atraumatic, Normocephalic - NECK Neck: Normal Inspection, Supple - RESPIRATORY Respiratory: Breath Sounds Normal, No Respiratory Distress, Chest Non-Tender O2 Sat by Pulse Oximetry: 97 - CARDIOVASCULAR Cardiovascular: Regular Rate, Regular Rhythm, No Murmur Pulses: Normal: Posterior tibial, Dorsalis pedis - BACK Back: Normal Inspection - MUSCULOSKELETAL/EXTREMETIES Musculoskeletal/Extremeties: MAEW, Tender - Right calf tenderness with palpation. Positive Homans sign. Normal skin color and temperature overlying, No Edema. negative: Eccymosis - NEURO Level of Consciousness: Awake, Alert, Appropriate Motor/Sensory: No Motor Deficit - DERM Integumentary: Warm, Dry, No Rash Course - Re-evaluation Re-evalutation: 08/03/16 14:[address] Cunha regarding patient presentation and exam findings. Reviewed patient's Doppler report. Patient states that he does take aspirin periodically as well as daily effiant for his atrial fibrillation. No additional diagnostic testing or medications recommended. Dr. Cunha advises use of warm compresses and compliance with his medications. 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 Referrals: [facility] [Provider Group] - Follow up tomorrow
[2016-08-03 14:34] VITALS: BP 150/91
== END 2016-08-03 14:34 | disposition home or self-care (01) ==
LOC: ER 11:20
DX: I82.819 Embolism and thrombosis of superficial veins of unspecified lower extremity (principal); M79.604 Pain in right leg; F17.210 Nicotine dependence, cigarettes, uncomplicated
CPT/HCPCS: 93971; 99283